=== PATIENT | male | born 1950 ===

== ENCOUNTER → 2018-09-02 | Outpatient (CLI) | payer MEDICARE | LOC: GMATM 17:30 | PROVIDERS: ATTEND Nurse Practitioner Family | DX: I10 Essential (primary) hypertension (principal) ==

== ENCOUNTER → 2018-09-03 | Outpatient (CLI) | payer MEDICARE | LOC: GMAM 15:34 | PROVIDERS: ATTEND Family Medicine | DX: Z12.5 Encounter for screening for malignant neoplasm of prostate (principal) ==

== ENCOUNTER → 2020-06-29 | Outpatient (CLI) | payer MEDICARE | LOC: GMAM 10:41 | PROVIDERS: ATTEND Family Medicine | DX: Z12.5 Encounter for screening for malignant neoplasm of prostate (principal); I10 Essential (primary) hypertension; R73.9 Hyperglycemia, unspecified ==

== ENCOUNTER → 2020-07-13 | Outpatient (CLI) | payer MEDICARE | LOC: GMAM 14:28 | PROVIDERS: ATTEND Family Medicine | DX: R74.8 Abnormal levels of other serum enzymes (principal); R06.02 Shortness of breath ==

== ENCOUNTER → 2020-08-04 | Outpatient (CLI) | payer MEDICARE | LOC: GMAM 11:39 | PROVIDERS: ATTEND Family Medicine | DX: E55.9 Vitamin D deficiency, unspecified (principal); R53.82 Chronic fatigue, unspecified; R06.02 Shortness of breath; R74.8 Abnormal levels of other serum enzymes ==

== ENCOUNTER → 2020-08-12 | Outpatient (CLI) | payer MEDICARE | LOC: GMAM 14:29 | PROVIDERS: ATTEND Family Medicine | DX: E55.9 Vitamin D deficiency, unspecified (principal); R94.6 Abnormal results of thyroid function studies ==

== ENCOUNTER → 2020-08-16 | Outpatient (CLI) | payer MEDICARE ==
--- NOTE | 2020-08-16 12:48 | US ---
US THYROID CLINICAL STATEMENT:70 years Male abnormal results of thyroid function studies. COMPARISON: None TECHNIQUE: Transcutaneous scanning, grayscale and Doppler modes. FINDINGS: Size right thyroid lobe: 4.4 x 2.2 x 1.5 cm Size left thyroid lobe: 3.5 x 1.6 x 1.4 cm Size isthmus: 0.2 cm Estimated total number of nodules greater than or equal to 1 cm: None.. No fluid collection or large calcifications. Nodule 1: Size: Hypoechoic solid nodule measuring 0.4 x 0.3 x 0.2 cm Location: Right Mid Composition: solid or almost completely solid: 2 points Echogenicity: hypoechoic: 2 points Shape: wider than tall: 0 points Margins: smooth: 0 points Echogenic foci: none: 0 points ACR Total Points: 4; ACR TI-RADS risk category: TR4 - moderately suspicious nodule. Nodule 2: Size: 0.7 x 0.6 x 0.5 cm Location: Left Mid Composition: cystic or completely cystic: 0 points Echogenicity: anechoic: 0 points Shape: wider than tall: 0 points Margins: smooth: 0 points Echogenic foci: none: 0 points. ACR Total Points: 0; ACR TI-RADS risk category: TR1 - benign nodule. The soft tissue in the thyroid gland is unremarkable. IMPRESSION: 1. Nodule 1: ACR TI-RADS 2017 Category TR4. Recommend: No further follow-up.. Recommendations based upon [facility] [employer] [facility] recommendations and ACR TI-RADS 2017 guidelines. Please see below*. 2. Nodule 2: ACR TI-RADS 2017 Category TR1. Recommend: No further follow-up. 3. Soft tissue surrounding the thyroid gland is unremarkable. *ACR TI-RADS 2017 Recommendations for imaging follow-up of nodules (baseline study): TR1: No FNA or follow up TR2: No FNA or follow up TR3: FNA if >/= 2.5 cm, follow up if 1.5 - 2.4 cm in 1, 3, and 5 years TR4: FNA if >/= 1.5 cm, follow up if 1.0 - 1.4 cm in 1, 2, 3, and 5 years TR5: FNA if >/= 1.0 cm, follow up if 0.5 - 0.9 cm every year for 5 years ACR TI-RADS recommends that no more than two nodules with the highest ACR TI-RADS total point should be biopsied and no more than four nodules should be followed. These recommendations do not apply to patients with increased risk for thyroid cancer or patients with symptomatic thyroid disease. Electronically signed by: Emiliano Mckinney MD 08/16/2020 12:47 PM [facility]
== END ==
LOC: US 09:33
PROVIDERS: ATTEND Family Medicine
DX: R94.6 Abnormal results of thyroid function studies (principal); E04.1 Nontoxic single thyroid nodule

== ENCOUNTER → 2020-09-16 | Outpatient (CLI) | payer MEDICARE | LOC: GMAM 15:53 | PROVIDERS: ATTEND Family Medicine | DX: E55.9 Vitamin D deficiency, unspecified (principal); R74.8 Abnormal levels of other serum enzymes; E21.5 Disorder of parathyroid gland, unspecified; I10 Essential (primary) hypertension ==

== ENCOUNTER → 2020-09-21 | Outpatient (CLI) | payer MEDICARE ==
--- NOTE | 2020-09-22 18:34 | US ---
EXAM DESCRIPTION: Aorta: Ultrasound. CLINICAL HISTORY: ABDOMINAL AORTIC ANEURYSM, WITHOUT RUPTURE COMPARISON: None. TECHNIQUE: Transcutaneous scanning: Two-dimensional and Doppler modes. Technically difficult study due to patient body habitus. FINDINGS: Abdominal aorta diameter - Proximal: 2.4 x 2.1 cm. Mid: 2.5 x 2.0 cm. Distal: 2.1 cm. Common Iliac diameter - Right: Not measured. Left: Not measured. Other: None. IMPRESSION: No abdominal aortic aneurysm. Electronically signed by: Emiliano Mckinney MD 09/22/2020 6:33 PM [employer]
== END ==
LOC: US 08:51
PROVIDERS: ATTEND Family Medicine
DX: I71.4 Abdominal aortic aneurysm, without rupture (principal)